=== PATIENT | male | born 1975 | race Caucasian/White ===

== ENCOUNTER 2018-10-14 16:40 | Inpatient (IN) | payer OTHER ==
[2018-10-14 16:47] VITALS: BMI 25.8
--- NOTE | 2018-10-14 16:47 | PDOC ---
Rapid Medical Evaluation Time Seen by Provider: 10/14/18 16:43 Medical Evaluation: Allergies Allergy/AdvReac Type Severity Reaction Status Date / Time No Known Allergies Allergy Verified 05/28/12 09:51 10/14/18 16:43 Pt presents with chest pain for the last 10 days. Hx of past heart attack, on plavix for stents placed in 2011. Admits to associated SOB and L arm pain. Exam: RRR, S1S2 present, no mrg. lungs CTAB Orders: labs, ekg, cxr Pt to proceed to the ER for further evaluation Discharge Disposition - Diagnosis Chest pain Qualifiers: Chest pain type: unspecified Qualified Code(s): R07.9 - Chest pain, unspecified - Referrals - Patient Instructions - Post Discharge Activity
--- NOTE | 2018-10-14 17:37 | PDOC ---
History of Present Illness - General Chief Complaint: Chest Pain Stated Complaint: chest pain Time Seen by Provider: 10/14/18 16:43 Past History - Past Medical History Allergies/Adverse Reactions: Allergies Allergy/AdvReac Type Severity Reaction Status Date / Time No Known Allergies Allergy Verified 05/28/12 09:51 Home Medications: Ambulatory Orders Bisoprolol Fumarate [Zebeta (Nf) -] 5 mg PO DAILY 04/01/12 Clopidogrel Bisulfate [Plavix -] 75 mg PO DAILY 04/01/12 Ramipril 2.5 mg PO DAILY 04/01/12 Rosuvastatin Calcium [Crestor] 10 mg PO DAILY 04/01/12 Aspirin [ASA -] 325 mg PO DAILY #0 tablet 05/29/12 Ibuprofen [Motrin -] 400 mg PO TID #0 tablet 05/29/12 Cardiac Disorders: Yes ([place]) COPD: No HTN: Yes - Surgical History Cardiac Surgery: Yes (cath w/stent) - Immunization History Immunization Up to Date: No - Suicide/Smoking/Psychosocial Hx Smoking Status: Yes Smoking History: Current every day smoker Years of Tobacco Use: 1 Have you smoked in the past 12 months: Yes Number of Cigarettes Smoked Daily: 10 Information on smoking cessation initiated: No 'Breaking Loose' booklet given: 05/28/12 Hx Alcohol Use: No Drug/Substance Use Hx: No Hx Substance Use Treatment: No Cardiac Specific PMH - Complaint Specific PMHX Abdominal Aortic Aneurysm: No Angina: Yes Cardiac Arrhythmia: No Cardiac Stent: Yes GERD: No Pacemaker: No Pulmonary Embolus: No Valvular Heart Disease: No Peripheral Vascular Disease: No *Physical Exam - Vital Signs Last Vital Signs Temp Pulse Resp BP Pulse Ox 98.2 F 63 16 99/50 L 97 10/14/18 16:44 10/14/18 16:44 10/14/18 16:44 10/14/18 16:44 10/14/18 16:44 *DC/Admit/Observation/Transfer Diagnosis at time of Disposition: Chest pain Qualifiers: Chest pain type: unspecified Qualified Code(s): R07.9 - Chest pain, unspecified - Discharge Dispostion Condition at time of disposition: Stable - Referrals Referrals: Isabel Walker [Primary Care Provider] - - Patient Instructions - Post Discharge Activity
[2018-10-14 17:50] LABS: BASO % 0.9 % (0-2.0); EOS % 3.9 % (0-4.5); HEMOGLOBIN 14.5 GM/dL (11.7-16.9); LYMPH % 41.8 % (8-40); MCH 30.9 pg (25.7-33.7); MCHC 34.5 g/dl (32.0-35.9); MEAN CELL VOLUME 89.5 fl (80-96); MEAN PLT VOLUME 8.8 fl (7.5-11.1); MONO % 9.5 % (3.8-10.2); NEUT % 43.9 % (42.8-82.8); PLATELET COUNT 204 K/MM3 (134-434); RBC 4.69 M/mm3 (4.00-5.60); RDW 13.1 % (11.9-15.9); WHITE BLOOD COUNT 4.9 K/mm3 (4.0-10.0)
[2018-10-14 18:01] LABS: INR 1.03 (0.83-1.09); PROTHROMBIN TIME (PATIENT) 12.2 SEC (9.7-13.0)
[2018-10-14 18:21] LABS: ALBUMIN 3.7 g/dl (3.4-5.0); BILIRUBIN,TOTAL 0.2 mg/dL (0.2-1); BLOOD UREA NITROGEN 17.7 mg/dL (7-18); CALCIUM 8.5 mg/dL (8.5-10.1); CREATININE 0.8 mg/dL (0.55-1.3); MAGNESIUM 2.5 mg/dL (1.8-2.4); POTASSIUM 4.2 mmol/L (3.5-5.1)
[2018-10-14 18:45] LABS: PH,URINE 5.5 (5.0-8.0); URINE APPEARANCE CLEAR; URINE BILIRUBIN NEGATIVE (NEGATIVE); URINE COLOR YELLOW; URINE GLUCOSE (UA) NEGATIVE (NEGATIVE); URINE KETONE TRACE (NEGATIVE); URINE LEUK ESTERASE NEGATIVE (NEGATIVE); URINE NITRITE NEGATIVE (NEGATIVE); URINE PROTEIN NEGATIVE (NEGATIVE)
[2018-10-14] MEDS ORDERED: ASPIRIN 81 MG CHEWABLE TABLETS PO ONE (21:50)
[2018-10-14] MEDS ORDERED: ASPIRIN 81 MG CHEWABLE TABLETS ONE (22:06)
--- NOTE | 2018-10-14 22:18 | PDOC ---
Documentation entered by Ángel Russell SCRIBE, acting as scribe for Carmina Ureña MD. Carmina Ureña MD: This documentation has been prepared by the Drew montes Joel, SCRIBE, under my direction and personally reviewed by me in its entirety. I confirm that the documentation accurately reflects all work, treatment, procedures, and medical decision making performed by me. History of Present Illness - General Chief Complaint: Chest Pain Stated Complaint: chest pain Time Seen by Provider: 10/14/18 16:43 History Source: Patient Exam Limitations: No Limitations - History of Present Illness Initial Comments: 10/14/18 17:58 The patient is a 43 year old male with a significant PMH of cardiac stents and hyperlipidemia who presents to the emergency department for evaluation of left side chest pain for the past 10 days. The past describes his chest pain as an intermittent squeezing and stabbing sensation localized on the left side with associated minimal shortness of breath, which is aggravated by standing. The patient reports he normally takes Plavix but does not adhere completely and ran out about 1 month ago. He reports speaking with his PCP and resuming Plavix about 4 days ago after the patient became concerned of his symptoms. 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 He endorses taking all his required medications this morning. The patient denies headache and dizziness. Denies fever, chills, nausea, vomit, diarrhea and constipation. Denies dysuria, frequency, urgency and hematuria. Allergies: NKA FMHx: Maternal [place] at 65 Past surgical history: Cardiac stents. Appendectomy Social history: Current everyday smoker ( pack/day). No reported alcohol or drug use. PCP: Dr. Walker Past History - Past Medical History Allergies/Adverse Reactions: Allergies Allergy/AdvReac Type Severity Reaction Status Date / Time No Known Allergies Allergy Verified 05/28/12 09:51 Home Medications: Ambulatory Orders Bisoprolol Fumarate [Zebeta (Nf) -] 5 mg PO DAILY 04/01/12 Clopidogrel Bisulfate [Plavix -] 75 mg PO DAILY 04/01/12 Rosuvastatin Calcium [Crestor] 10 mg PO DAILY 04/01/12 Aspirin [ASA -] 325 mg PO DAILY #0 tablet 05/29/12 Cardiac Disorders: Yes ([place]) COPD: No HTN: Yes - Surgical History Cardiac Surgery: Yes (cath w/stent) - Immunization History Immunization Up to Date: No - Suicide/Smoking/Psychosocial Hx Smoking Status: Yes Smoking History: Current every day smoker Years of Tobacco Use: 1 Have you smoked in the past 12 months: Yes Number of Cigarettes Smoked Daily: 10 Information on smoking cessation initiated: No 'Breaking Loose' booklet given: 05/28/12 Hx Alcohol Use: No Drug/Substance Use Hx: No Hx Substance Use Treatment: No Review of Systems - Review of Systems Able to Perform ROS?: Yes Comments:: 10/14/18 17:58 GENERAL/CONSTITUTIONAL: No fever or chills. No weakness. HEAD, EYES, EARS, NOSE AND THROAT: No change in vision. No ear pain or discharge. No sore throat. CARDIOVASCULAR: (+) Left side chest pain. (+) Minimal SOB. RESPIRATORY: No cough, wheezing, or hemoptysis. GASTROINTESTINAL: No nausea, vomiting, diarrhea or constipation. GENITOURINARY: No dysuria, frequency, or change in urination. MUSCULOSKELETAL: No joint or muscle swelling or pain. No neck or back pain. SKIN: No rash NEUROLOGIC: No headache, vertigo, loss of consciousness, or change in strength/ sensation. ENDOCRINE: No increased thirst. No abnormal weight change. HEMATOLOGIC/LYMPHATIC: No anemia, easy bleeding, or history of blood clots. ALLERGIC/IMMUNOLOGIC: No hives or skin allergy. *Physical Exam - Vital Signs Last Vital Signs Temp Pulse Resp BP Pulse Ox 98.2 F 63 16 99/50 L 97 10/14/18 16:44 10/14/18 16:44 10/14/18 16:44 10/14/18 16:44 10/14/18 16:44 - Physical Exam Comments: 10/14/18 17:59 GENERAL: Awake, alert, and fully oriented, in no acute distress HEAD: No signs of trauma EYES: PERRLA, EOMI, sclera anicteric, conjunctiva clear ENT: Auricles normal inspection, hearing grossly normal, nares patent, oropharynx clear without exudates. Moist mucosa NECK: Normal ROM, supple, no lymphadenopathy, JVD, or masses LUNGS: Breath sounds equal, clear to auscultation bilaterally. No wheezes, and no crackles HEART: Regular rate and rhythm, normal S1 and S2, no murmurs, rubs or gallops ABDOMEN: Soft, nontender, normoactive bowel sounds. No guarding, no rebound. No masses EXTREMITIES: Normal range of motion, no edema. No clubbing or cyanosis. No cords, erythema, or tenderness NEUROLOGICAL: Cranial nerves II through XII grossly intact. Normal speech, normal gait SKIN: Warm, Dry, normal turgor, no rashes or lesions noted. ED Treatment Course - LABORATORY CBC & Chemistry Diagram: 10/14/18 17:13 10/14/18 17:13 - ADDITIONAL ORDERS Additional order review: Laboratory Results 10/14/18 10/14/18 10/14/18 20:30 18:33 17:35 PT with INR INR Sodium Potassium Chloride Carbon Dioxide Anion Gap BUN Creatinine Est GFR (CKD-EPI)AfAm Est GFR (CKD-EPI)NonAf Random Glucose Calcium Magnesium Total Bilirubin AST ALT Alkaline Phosphatase Creatine Kinase 288 338 H Creatine Kinase Index 1.1 1.1 CK-MB (CK-2) 3.2 3.8 H Troponin I < 0.02 < 0.02 Total Protein Albumin Urine Color Yellow Urine Appearance Clear Urine pH 5.5 Ur Specific [place] 1.021 Urine Protein Negative Urine Glucose (UA) Negative Urine Ketones Trace H Urine Blood Negative Urine Nitrite Negative Urine Bilirubin Negative Urine Urobilinogen 1.0 Ur Leukocyte Esterase Negative 10/14/18 10/14/18 10/14/18 17:13 17:13 17:13 PT with INR 12.20 INR 1.03 Sodium 138 Potassium 4.2 Chloride 107 Carbon Dioxide 24 Anion Gap 7 L BUN 17.7 Creatinine 0.8 Est GFR (CKD-EPI)AfAm 125.04 Est GFR (CKD-EPI)NonAf 107.88 Random Glucose 87 Calcium 8.5 Magnesium Cancelled 2.5 H Total Bilirubin 0.2 AST 32 ALT 68 H Alkaline Phosphatase 123 H Creatine Kinase Creatine Kinase Index CK-MB (CK-2) Troponin I Total Protein 7.0 Albumin 3.7 Urine Color Urine Appearance Urine pH Ur Specific [place] Urine Protein Urine Glucose (UA) Urine Ketones Urine Blood Urine Nitrite Urine Bilirubin Urine Urobilinogen Ur Leukocyte Esterase 10/14/18 17:13 RBC 4.69 MCV 89.5 MCHC 34.5 RDW 13.1 MPV 8.8 D Neutrophils % 43.9 Lymphocytes % 41.8 H D Monocytes % 9.5 Eosinophils % 3.9 Basophils % 0.9 D Medical Decision Making - Medical Decision Making 10/14/18 21:50 43-year-old male presents with chest tightness that he states is been intermittent and squeezing. Past medical history significant for heart attack and cardiac catheterization with stents placed in [facility] in 2011. his PCP is in the [place].He does have an appt with a it systems administrator on Nov 24 but he dev chest pain. No prior ekg for comparison pt takes plavix,baby aspirin,atorvastatin and biosprolol and took all his meds today 10/14/18 22:15 *DC/Admit/Observation/Transfer Diagnosis at time of Disposition: Chest pain Qualifiers: Chest pain type: unspecified Qualified Code(s): R07.9 - Chest pain, unspecified - Discharge Dispostion Condition at time of disposition: Good Decision to Admit order: Yes - Referrals Referrals: Isabel Walker [Primary Care Provider] - - Patient Instructions - Post Discharge Activity
--- NOTE | 2018-10-14 23:08 | PN ---
Teaching Attending Note Name of Resident: Millicent Berry ATTENDING PHYSICIAN STATEMENT I saw and evaluated the patient. I reviewed the resident's note and discussed the case with the resident. I agree with the resident's findings and plan as documented. SUBJECTIVE: Seen and examined; please refer to resident note for further historical information. Briefly, this is a 43 y/o male presenting with CP; he [place] a [place] and we do not have cath report, etc. He is afebrile and hemodynamically stable with troponin x2 (-) and CKMB initially very slightly up that has returned down. He is currently chest pain free. Given his risks for CAD we plan to keep him on the floor on telemetry and repeat 1 more set of enzymes and obtain EKG in AM. We can consider cardiology consultation in AM. His chest pain happens both at rest 10 sys ROS done and negative aside from HPI PMH, PSH, FH, SH reviewed Home Medications Medication Instructions Recorded Bisoprolol Fumarate [Zebeta (Nf) -] 5 mg PO DAILY 04/01/12 Clopidogrel Bisulfate [Plavix -] 75 mg PO DAILY 04/01/12 Rosuvastatin Calcium [Crestor] 10 mg PO DAILY 04/01/12 Aspirin [ASA -] 325 mg PO DAILY #0 tablet 05/29/12 OBJECTIVE: VS, labs, imaging reviewed NAD, AAO, resting comfortably in bed NC AT EOMI PERRLA RRR s1/2 no mgr Lungs CTAB, w/ sym exp NT ND +BS CN2-12 wnl, no fnd Normal mood, appropriate behavior EKG reviewed CXR reviewed ASSESSMENT AND PLAN: Patient with a history of CAD (PCI in [facility]) presents to the ER with a CC of chest pain 1)
--- NOTE | 2018-10-15 00:01 | HP ---
CHIEF COMPLAINT: chest pain PCP: Dr. Walker HISTORY OF PRESENT ILLNESS: Mr. Armstrong is a 43 yo male with history of DC s/p stent placement in 2011, hyperlipidemia, and HTN presents to ED with intermittent chest pain x 2 weeks. He describes the pain as squeezing, pressure, and sharp at times averaging 4-5/ 10 when it presents. It lasts about 1 minute and resolves without any modifications. It can be present at rest and during activity. The pain sometimes radiates to his back and down his left arm. He reports that this pain is different than during his previous DC. He denies headache, dizziness, nausea , vomiting, or LE edema. He recently stopped his Plavix and is unable to give a timeframe. He called his PCP about a week ago and got a refill and resumed that medication. He also has an appointment with a new mail teller in November. ER course was notable for: (1) 162mg ASA administered (2) Troponins negative x 2 (3) EKG PAST MEDICAL HISTORY: 1. DC s/p stent 2011 2. hyperlipidemia 3. HTN PAST SURGICAL HISTORY: appendectomy Social History: Smokin/2 ppd for 28 years, patient is interested in quitting Alcohol: none Drugs: none Family History: mother passed from DC at 65 father healthy siblings healthy Allergies No Known Allergies Allergy (Verified 05/28/12 09:51) HOME MEDICATIONS: Home Medications Medication Instructions Recorded Bisoprolol Fumarate [Zebeta (Nf) -] 5 mg PO DAILY 04/01/12 Clopidogrel Bisulfate [Plavix -] 75 mg PO DAILY 04/01/12 Rosuvastatin Calcium [Crestor] 10 mg PO DAILY 04/01/12 Aspirin [ASA -] 325 mg PO DAILY #0 tablet 05/29/12 REVIEW OF SYSTEMS CONSTITUTIONAL: Absent: fever, chills, diaphoresis, generalized weakness CARDIOVASCULAR: Present: chest pain Absent: syncope, palpitations, irregular heart rate, lightheadedness, peripheral edema RESPIRATORY: Present: shortness of breath Absent: cough, dyspnea with exertion, orthopnea, wheezing, stridor, hemoptysis GASTROINTESTINAL: Absent: abdominal pain, abdominal distension, nausea, vomiting, diarrhea MUSCULOSKELETAL: Present: left leg pain Absent: joint swelling, back pain, neck pain SKIN: Absent: rash, itching, pallor HEMATOLOGIC/IMMUNOLOGIC: Absent: easy bleeding, easy bruising ENDOCRINE: Absent: unexplained weight loss NEUROLOGIC: Absent: headache, focal weakness or paresthesias, dizziness, unsteady gait, seizure, mental status changes, bladder or bowel incontinence PSYCHIATRIC: Absent: anxiety, depression, suicidal or homicidal ideation, hallucinations. PHYSICAL EXAMINATION Vital Signs - 24 hr 10/14/18 16:44 Temperature 98.2 F Pulse Rate 63 Respiratory 16 Rate Blood Pressure 99/50 L O2 Sat by Pulse 97 Oximetry (%) GENERAL: Awake, alert, and fully oriented, in no acute distress. HEAD: Normal with no signs of trauma. EYES: Pupils equal, round and reactive to light, extraocular movements intact, sclera anicteric, conjunctiva clear. No lid lag. EARS, NOSE, THROAT: Ears normal, nares patent. Moist mucous membranes. NECK: Normal range of motion, without JVD, or masses. LUNGS: Breath sounds equal, clear to auscultation bilaterally. No wheezes, and no crackles. No accessory muscle use. HEART: Regular rate and rhythm, normal S1 and S2 without murmur, rub or gallop. ABDOMEN: Soft, nontender, not distended, normoactive bowel sounds, no guarding, no rebound, no masses. MUSCULOSKELETAL: Normal range of motion at all joints. No bony deformities or tenderness. No CVA tenderness. No chest wall tenderness. UPPER EXTREMITIES: 2+ pulses, warm, well-perfused. No cyanosis. No clubbing. No peripheral edema. LOWER EXTREMITIES: 2+ pulses, warm, well-perfused. No calf tenderness. No peripheral edema. NEUROLOGICAL: Cranial nerves II-XII intact. Normal speech. Normal gait. PSYCHIATRIC: Cooperative. Good eye contact. Appropriate mood and affect. SKIN: Warm, dry, normal turgor, no rashes or lesions noted, normal capillary refill. Laboratory Results - last 24 hr 10/14/18 10/14/18 10/14/18 17:13 17:13 17:13 WBC 4.9 RBC 4.69 Hgb 14.5 Hct 42.0 MCV 89.5 MCH 30.9 MCHC 34.5 RDW 13.1 Plt Count 204 D MPV 8.8 D Absolute Neuts (auto) 2.1 Neutrophils % 43.9 Lymphocytes % 41.8 H D Monocytes % 9.5 Eosinophils % 3.9 Basophils % 0.9 D Nucleated RBC % 0 PT with INR 12.20 INR 1.03 Sodium 138 Potassium 4.2 Chloride 107 Carbon Dioxide 24 Anion Gap 7 L BUN 17.7 Creatinine 0.8 Est GFR (CKD-EPI)AfAm 125.04 Est GFR (CKD-EPI)NonAf 107.88 Random Glucose 87 Calcium 8.5 Magnesium 2.5 H Total Bilirubin 0.2 AST 32 ALT 68 H Alkaline Phosphatase 123 H Creatine Kinase Creatine Kinase Index CK-MB (CK-2) Troponin I Total Protein 7.0 Albumin 3.7 Urine Color Urine Appearance Urine pH Ur Specific [place] Urine Protein Urine Glucose (UA) Urine Ketones Urine Blood Urine Nitrite Urine Bilirubin Urine Urobilinogen Ur Leukocyte Esterase 10/14/18 10/14/18 10/14/18 17:13 17:35 18:33 WBC RBC Hgb Hct MCV MCH MCHC RDW Plt Count MPV Absolute Neuts (auto) Neutrophils % Lymphocytes % Monocytes % Eosinophils % Basophils % Nucleated RBC % PT with INR INR Sodium Potassium Chloride Carbon Dioxide Anion Gap BUN Creatinine Est GFR (CKD-EPI)AfAm Est GFR (CKD-EPI)NonAf Random Glucose Calcium Magnesium Cancelled Total Bilirubin AST ALT Alkaline Phosphatase Creatine Kinase 338 H Creatine Kinase Index 1.1 CK-MB (CK-2) 3.8 H Troponin I < 0.02 Total Protein Albumin Urine Color Yellow Urine Appearance Clear Urine pH 5.5 Ur Specific [place] 1.021 Urine Protein Negative Urine Glucose (UA) Negative Urine Ketones Trace H Urine Blood Negative Urine Nitrite Negative Urine Bilirubin Negative Urine Urobilinogen 1.0 Ur Leukocyte Esterase Negative 10/14/18 20:30 WBC RBC Hgb Hct MCV MCH MCHC RDW Plt Count MPV Absolute Neuts (auto) Neutrophils % Lymphocytes % Monocytes % Eosinophils % Basophils % Nucleated RBC % PT with INR INR Sodium Potassium Chloride Carbon Dioxide Anion Gap BUN Creatinine Est GFR (CKD-EPI)AfAm Est GFR (CKD-EPI)NonAf Random Glucose Calcium Magnesium Total Bilirubin AST ALT Alkaline Phosphatase Creatine Kinase 288 Creatine Kinase Index 1.1 CK-MB (CK-2) 3.2 Troponin I < 0.02 Total Protein Albumin Urine Color Urine Appearance Urine pH Ur Specific [place] Urine Protein Urine Glucose (UA) Urine Ketones Urine Blood Urine Nitrite Urine Bilirubin Urine Urobilinogen Ur Leukocyte Esterase EKG HR 65 regular rhythm normal axis T wave inversion V1 and V2 (unchanged from previous EKG) CXR no cardiomegaly or acute processes ASSESSMENT/PLAN: Patient is 43 yo male with history of DC and stent who presents with intermittent chest pain x 2 weeks that is present during activity and rest. 1. unstable angina Patient has been having intermittent chest pain during activity and rest. Trop is <0.02 x 2 and CK-MB is trending down 3.8-->3.2. There are no ST elevations in current EKG. ENRIKE score 2 so no need for PCI right now. Will consult cards because patient does not have established mail teller. Last stress test and echo were in 2012 so will order exercise stress test and echo. Given such early heart disease, patient should be tested for other chronic conditions. TSH, free T4 reflex, and HbA1C ordered. 2. hyperlipidemia No lipid panel on file, will be collected in the morning 3. hypertension Blood pressure is soft, will hold home beta pia and monitor hemodynamics. Will reinstate accordingly. Fluids- Patient is euvolemic and is not in need of fluids at this time. Electrolytes- No abnormalities noted but will continue to monitor. Nutrition- Will start patient on low sodium diet. Visit type - Emergency Visit Emergency Visit: Yes ED Registration Date: 10/14/18 Care time: The patient presented to the Emergency Department on the above date and was hospitalized for further evaluation of their emergent condition. - New Patient This patient is new to me today: Yes Date on this admission: 10/15/18 - Critical Care Critical Care patient: No
[2018-10-15 06:28] LABS: HEMATOCRIT 42.6 % (35.4-49); HEMOGLOBIN 14.4 GM/dL (11.7-16.9); MCH 30.3 pg (25.7-33.7); MCHC 33.7 g/dl (32.0-35.9); MEAN CELL VOLUME 89.7 fl (80-96); MEAN PLT VOLUME 8.9 fl (7.5-11.1); PLATELET COUNT 174 K/MM3 (134-434); RBC 4.75 M/mm3 (4.00-5.60); RDW 12.9 % (11.9-15.9); WHITE BLOOD COUNT 4.3 K/mm3 (4.0-10.0)
[2018-10-15 07:04] LABS: ALBUMIN 3.3 g/dl (3.4-5.0); BILIRUBIN,TOTAL 0.4 mg/dL (0.2-1); CREATININE 0.8 mg/dL (0.55-1.3); MAGNESIUM 2.5 mg/dL (1.8-2.4); PHOSPHOROUS 3.4 mg/dL (2.5-4.9); POTASSIUM 4.3 mmol/L (3.5-5.1); TOT PROT 6.4 g/dl (6.4-8.2)
[2018-10-15] MEDS ORDERED: CLOPIDOGREL BISULFATE 75 MG TABLET (FP) PO SCH (10:00)
[2018-10-15] MEDS ORDERED: ASPIRIN 325 MG TABLET PO SCH (10:00)
[2018-10-15] MEDS ORDERED: ASPIRIN COATED 81 MG TABLET.EC PO SCH (10:00)
[2018-10-15] MEDS ORDERED: CLOPIDOGREL BISULFATE 75 MG TABLET (FP) ONE (10:25)
[2018-10-15] MEDS ORDERED: ASPIRIN COATED 81 MG TABLET.EC ONE (10:25)
--- NOTE | 2018-10-15 11:52 | PN ---
Physical Exam: SUBJECTIVE: Patient seen and examined at bedside. Pt stating that his chest discomfort is resolving. OBJECTIVE: Vital Signs Period Temp Pulse Resp BP Sys/Vanegas Pulse Ox Last 24 Hr 97.6 F-98.2 F 62-68 16-17 99-110/50-80 96-98 GENERAL: The patient is awake, alert, and fully oriented, in no acute distress. HEAD: Normal with no signs of trauma. LUNGS: Breath sounds equal, clear to auscultation bilaterally, no wheezes, no crackles, no accessory muscle use. HEART: Regular rate and rhythm, S1, S2 without murmur, rub or gallop. ABDOMEN: Soft, nontender, nondistended, normoactive bowel sounds, no guarding EXTREMITIES: 2+ pulses, warm, well-perfused, no edema. NEUROLOGICAL: Cranial nerves II through XII grossly intact. Normal speech PSYCH: Normal mood, normal affect. SKIN: Warm, dry, normal turgor, no rashes or lesions noted Laboratory Last Values WBC 4.3 K/mm3 (4.0-10.0) 10/15/18 06:05 RBC 4.75 M/mm3 (4.00-5.60) 10/15/18 06:05 Hgb 14.4 GM/dL (11.7-16.9) 10/15/18 06:05 Hct 42.6 % (35.4-49) 10/15/18 06:05 MCV 89.7 fl (80-96) 10/15/18 06:05 MCH 30.3 pg (25.7-33.7) 10/15/18 06:05 MCHC 33.7 g/dl (32.0-35.9) 10/15/18 06:05 RDW 12.9 % (11.9-15.9) 10/15/18 06:05 Plt Count 174 K/MM3 (134-434) 10/15/18 06:05 MPV 8.9 fl (7.5-11.1) 10/15/18 06:05 Absolute Neuts (auto) 2.1 K/mm3 (1.5-8.0) 10/14/18 17:13 Neutrophils % 43.9 % (42.8-82.8) 10/14/18 17:13 Lymphocytes % 41.8 % (8-40) H D 10/14/18 17:13 Monocytes % 9.5 % (3.8-10.2) 10/14/18 17:13 Eosinophils % 3.9 % (0-4.5) 10/14/18 17:13 Basophils % 0.9 % (0-2.0) D 10/14/18 17:13 Nucleated RBC % 0 % (0-0) 10/14/18 17:13 PT with INR 12.20 SEC (9.7-13.0) 10/14/18 17:13 INR 1.03 (0.83-1.09) 10/14/18 17:13 Sodium 139 mmol/L (136-145) 10/15/18 06:05 Potassium 4.3 mmol/L (3.5-5.1) 10/15/18 06:05 Chloride 108 mmol/L (98-107) H 10/15/18 06:05 Carbon Dioxide 26 mmol/L (21-32) 10/15/18 06:05 Anion Gap 5 MMOL/L (8-16) L 10/15/18 06:05 BUN 16.0 mg/dL (7-18) 10/15/18 06:05 Creatinine 0.8 mg/dL (0.55-1.3) 10/15/18 06:05 Est GFR (CKD-EPI)AfAm 125.04 10/15/18 06:05 Est GFR (CKD-EPI)NonAf 107.88 10/15/18 06:05 Random Glucose 97 mg/dL (74-106) 10/15/18 06:05 Hemoglobin A1c % 5.7 % (4.2-6.3) 10/15/18 06:05 Calcium 8.0 mg/dL (8.5-10.1) L 10/15/18 06:05 Phosphorus 3.4 mg/dL (2.5-4.9) 10/15/18 06:05 Magnesium 2.5 mg/dL (1.8-2.4) H 10/15/18 06:05 Total Bilirubin 0.4 mg/dL (0.2-1) 10/15/18 06:05 AST 39 U/L (15-37) H 10/15/18 06:05 ALT 73 U/L (13-61) H 10/15/18 06:05 Alkaline Phosphatase 119 U/L (45-117) H 10/15/18 06:05 Creatine Kinase 241 U/L (26-308) 10/15/18 02:41 Creatine Kinase Index 0.9 % (0.0-5.0) 10/15/18 02:41 CK-MB (CK-2) 2.4 ng/mL (0.5-3.6) 10/15/18 02:41 Troponin I < 0.02 ng/ml (0.00-0.05) 10/15/18 02:41 Total Protein 6.4 g/dl (6.4-8.2) 10/15/18 06:05 Albumin 3.3 g/dl (3.4-5.0) L 10/15/18 06:05 Triglycerides 55 mg/dL (0-150) 10/15/18 06:05 Cholesterol 130 mg/dL (50-200) 10/15/18 06:05 Total LDL Cholesterol 81 mg/dL (5-100) 10/15/18 06:05 HDL Cholesterol 49 mg/dL (40-60) 10/15/18 06:05 TSH 1.46 uIU/ml (0.358-3.74) 10/15/18 06:05 Free T4 1.03 ng/dl (0.76-1.16) 10/15/18 06:05 Urine Color Yellow 10/14/18 18:33 Urine Appearance Clear 10/14/18 18:33 Urine pH 5.5 (5.0-8.0) 10/14/18 18:33 Ur Specific [place] 1.021 (1.010-1.035) 10/14/18 18:33 Urine Protein Negative (NEGATIVE) 10/14/18 18:33 Urine Glucose (UA) Negative (NEGATIVE) 10/14/18 18:33 Urine Ketones Trace (NEGATIVE) H 10/14/18 18:33 Urine Blood Negative (NEGATIVE) 10/14/18 18:33 Urine Nitrite Negative (NEGATIVE) 10/14/18 18:33 Urine Bilirubin Negative (NEGATIVE) 10/14/18 18:33 Urine Urobilinogen 1.0 mg/dL (0.2-1.0) 10/14/18 18:33 Ur Leukocyte Esterase Negative (NEGATIVE) 10/14/18 18:33 Active Medications Generic Name Dose Route Start Last Admin Trade Name Freq PRN Reason Stop Dose Admin Aspirin 81 mg 10/15/18 10:00 10/15/18 10:26 Ecotrin - PO 81 mg DAILY ALLA Administration Clopidogrel Bisulfate 75 mg 10/15/18 10:00 10/15/18 10:26 Plavix - PO 75 mg DAILY ALLA Administration Rosuvastatin Calcium 10 mg 10/15/18 22:00 Crestor - PO HS ALLA Echocardiogram: There was insufficient TR detected to calculate RV systolic pressure. the Left ventricle is grossly normal in size Trace pulmonic valvular regurgitation. There is apical akinesis. There is apical septal wall akinesis There is apical anterior wall akinesis There is mild to moderate global hypokinesis of the left ventricle Left ventricular systolic fxn is moderately to severely reduced there is mild Mitral regurg The transmitral spectral doppler flow pattern is normal for age. ASSESSMENT/PLAN: Pt is a 43 yo M who presented to the ED with chest pain. Pt has PMH of CAD, prior [place] s/p stent (2011), HLD, HTN. PT also endorses to smoking. His pain began 2 weeks ago. pain was not constant throughout the time. Pt would have pain that wasnt associated with exertion. On 10/14/18 the pain returned and pt decided to come to ED. Chest pain -EKG: no ST elevation, T wave inversion in V1 and V2; Normal sinus rhythm -Troponin neg x3 -Echo results show poor LV systolic fxn -awaiting exercise stress test -c/w Asa and Plavix -cardiology recs appreciated:
--- NOTE | 2018-10-15 13:35 | ECHO ---
Name: MALINI ESTRADA Exam:Adult Echocardiogram Study Date: 10/15/2018 07:32 AM Age: 43 yrs Reason For Study: cardiac history Height: 66 in Weight: 160 lb BSA: 1.8 m2 MMode/2D Measurements & Calculations IVSd: 0.94 cm Ao root diam: 2.9 cm LVIDd: 4.7 cm LA dimension: 3.5 cm LVIDs: 3.4 cm LVPWd: 0.86 cm EDV(Teich): 104.1 ml LVOT diam: 2.0 cm ESV(Teich): 45.9 ml LAV (MOD-bp): 38.5 ml Doppler Measurements & Calculations MV E max tyler: 80.0 cm/sec Ao V2 max: 131.7 cm/sec MV A max tyler: 75.2 cm/sec Ao max P.9 mmHg MV E/A: 1.1 MV dec time: 0.17 sec GIFTY(V,D): 2.4 cm2 LV V1 max P.1 mmHg MR max tyler: 318.1 cm/sec LV V1 max: 100.9 cm/sec MR max P.0 mmHg PA V2 max: 108.6 cm/sec Med Peak E' [place]: 8.1 cm/sec PA max P.7 mmHg Med E/e': 9.9 Lat Peak E' [place]: 11.3 cm/sec Lat E/e': 7.1 PI Vmax: 141.2 cm/sec Procedure A two-dimensional transthoracic echocardiogram with color flow and Doppler was performed. Left Ventricle The left ventricle is grossly normal size. Left ventricular systolic function is moderate to severely reduced. The transmitral spectral Doppler flow pattern is normal for age. There is apical akinesis. There is a pical septal wall akinesis. There is apical anterior wall akinesis. There is mild to moderate global hypoki nesis of the left ventricle. Right Ventricle The right ventricle is normal in size and function. Atria Normal left and right atrial size and function. Mitral Valve There is mild mitral valve thickening. There is no mitral valve stenosis. There is mild mitral regurg itation. Tricuspid Valve There is mild tricuspid valve thickening. There is no tricuspid stenosis. There was insufficient TR d etected to calculate RV systolic pressure. Aortic Valve The aortic valve is normal in structure and function. No hemodynamically significant valvular aortic stenosis. No aortic regurgitation is present. Pulmonic Valve The pulmonic valve is not well visualized. There is no pulmonic valvular stenosis. Trace pulmonic vidhya vular regurgitation. Great Vessels The aortic root is normal size. Pericardium/Pleura There is no pericardial effusion. Interpretation Summary There was insufficient TR detected to calculate RV systolic pressure. The left ventricle is grossly normal size. Trace pulmonic valvular regurgitation. There is apical akinesis. There is apical septal wall akinesis. There is apical anterior wall akinesis. There is mild to moderate global hypokinesis of the left ventricle. Left ventricular systolic function is moderate to severely reduced. There is mild mitral regurgitation. The transmitral spectral Doppler flow pattern is normal for age. MD Simone Fernandez 10/15/2018 01:34 PM
--- NOTE | 2018-10-15 13:41 | CON.CARD ---
Consult Consult Specialty:: Cardiology Referred by:: Dr. Johnson Reason for Consultation:: Chest pain with a history of CAD and DE. - History of Present Illness Chief Complaint: Chest pain History of Present Illness: 43 year-old man, active heavy smoker, with a PMHx of HTN, HLD, CAD, [place] s/p stenting in [facility] in 2011, ischemic cardiomyopathy with LV systolic dysfunction presents to ED 10/15/18 with intermittent chest pain x 2 weeks. The patient has intermittent non-exertional left sided chest pain for 2 weeks. He cannot recall any precipitating factors of his chest pain. But he has exertional dyspnea. Chest pain lasts about 1 minute and resolves without any modifications. It can be present at rest and during activity. He has left sided local tenderness associated with the chest pain. ECG showed no acute changes. DE ruled out. Echocardiogram 10/15/18 showed normal LV size with large apical severe hypokinesis , anteroseptal akinesis and distal inferoapical akinesis. LV systolic function is severely reduced. Estimated LVEF 30-35%. Normal RV. Mild LA dilatation. No significant valvular abnormalities. - History Source History Provided By: Patient, Medical Record - Past Medical History Cardio/Vascular: Yes: CAD, CHF, HTN, Hyperlipdemia - Alcohol/Substance Use Hx Alcohol Use: No - Smoking History Smoking history: Current every day smoker Have you smoked in the past 12 months: Yes Aproximately how many cigarettes per day: 10 Home Medications - Allergies Allergies/Adverse Reactions: Allergies Allergy/AdvReac Type Severity Reaction Status Date / Time No Known Allergies Allergy Verified 10/15/18 10:59 - Home Medications Home Medications: Ambulatory Orders Bisoprolol Fumarate [Zebeta (Nf) -] 5 mg PO DAILY 04/01/12 Clopidogrel Bisulfate [Plavix -] 75 mg PO DAILY 04/01/12 Rosuvastatin Calcium [Crestor] 10 mg PO DAILY 04/01/12 Aspirin [ASA -] 325 mg PO DAILY #0 tablet 05/29/12 Atorvastatin Calcium [Lipitor] 20 mg PO DAILY 10/15/18 Review of Systems - Review of Systems Cardiovascular: reports: Chest Pain Respiratory: reports: SOB on Exertion Vital Signs: Vital Signs Temperature 97.6 F 10/15/18 09:05 Pulse Rate 62 10/15/18 09:05 Respiratory Rate 16 10/15/18 09:05 Blood Pressure 110/69 10/15/18 09:05 O2 Sat by Pulse Oximetry (%) 96 10/15/18 09:05 General: Well developed. Well nourished. No acute distress. Head: Normocephalic. Atraumatic, Eyes: PERRLA, EOMI. Sclerae anicteric. Conjunctivae clear. Neck: Supple. No JVD. No bruits. Heart: Normal S1, S2: Regular rhythm and rate. No murmur. No gallop or rub. Lungs: Symmetrical air entry. Clear to auscultation. No crackles. No wheezing or rhonchi. Abdomen: Soft. Bowel sound positive. Non tender. No masses. Extremities: No edema. No clubbing or cyanosis. PD 2+, equal bilaterally. Neuro: Intact, no focal findings. AAO X3. - Other Data Labs, Other Data: CBC, BMP 10/15/18 06:05 10/15/18 06:05 INR, PTT INR 1.03 (0.83-1.09) 10/14/18 17:13 Troponin, BNP 10/14/18 10/14/18 10/15/18 17:35 20:30 02:41 Troponin I < 0.02 < 0.02 < 0.02 Troponin, BNP 10/14/18 10/14/18 10/15/18 17:35 20:30 02:41 Troponin I < 0.02 < 0.02 < 0.02 Assessment/Plan 43 year-old man, active heavy smoker, with a PMHx of HTN, HLD, CAD, [place] s/p stenting in [facility] in 2011, ischemic cardiomyopathy with LV systolic dysfunction presents to ED 10/15/18 with intermittent atypical chest pain x 2 weeks. ECG showed no acute changes. DE ruled out. Echocardiogram 10/15/18 showed normal LV size with large apical severe hypokinesis , anteroseptal akinesis and distal inferoapical akinesis. LV systolic function is severely reduced. Estimated LVEF 30-35%. Normal RV. Mild LA dilatation. No significant valvular abnormalities. 1. Chest pain with atypical features, likely not acute coronary syndrome. Would discharge the patient from ED with close outpatient cardiac follow up. He will be seen by Dr. Luna in our [place] office on 10/17/18 at 10:30AM. Discharge with aspirin, Bystolic and low dose Diovan 80 mg daily. Increase atorvastatin to 40 mg daily. 2) Chronic systolic CHF with severe LV systolic dysfunction. Continue Bystolic and start low dose Diovan 80 mg daily. Repeat echo in 2-3 months. May need prophylactic ICD if LV systolic function remains poor. Please do not hesitate to call us for reconsult at any time if any further questions or additional issue arises regarding this patient.
[2018-10-15 15:42] VITALS: BP 118/74; PULSE 63; TEMP 97.4
--- NOTE | 2018-10-15 16:21 | DS ---
Physical Exam: SUBJECTIVE: Patient seen and examined at bedside. Pt stated his chest pain and discomfort is resolving. OBJECTIVE: Vital Signs Period Temp Pulse Resp BP Sys/Vanegas Pulse Ox Last 24 Hr 97.4 F-98.2 F 62-68 16-17 99-118/50-80 96-98 PHYSICAL EXAM GENERAL: The patient is awake, alert, and fully oriented, in no acute distress. LUNGS: Breath sounds equal, clear to auscultation bilaterally, no wheezes, no crackles, no accessory muscle use. HEART: Regular rate and rhythm, S1, S2 ABDOMEN: Soft, nontender, nondistended, normoactive bowel sounds, no guarding EXTREMITIES: 2+ pulses, warm, well-perfused, no edema. NEUROLOGICAL: Cranial nerves II through XII grossly intact. Normal speech PSYCH: Normal mood, normal affect. SKIN: Warm, dry, normal turgor, no rashes or lesions noted. Laboratory Last Values WBC 4.3 K/mm3 (4.0-10.0) 10/15/18 06:05 RBC 4.75 M/mm3 (4.00-5.60) 10/15/18 06:05 Hgb 14.4 GM/dL (11.7-16.9) 10/15/18 06:05 Hct 42.6 % (35.4-49) 10/15/18 06:05 MCV 89.7 fl (80-96) 10/15/18 06:05 MCH 30.3 pg (25.7-33.7) 10/15/18 06:05 MCHC 33.7 g/dl (32.0-35.9) 10/15/18 06:05 RDW 12.9 % (11.9-15.9) 10/15/18 06:05 Plt Count 174 K/MM3 (134-434) 10/15/18 06:05 MPV 8.9 fl (7.5-11.1) 10/15/18 06:05 Absolute Neuts (auto) 2.1 K/mm3 (1.5-8.0) 10/14/18 17:13 Neutrophils % 43.9 % (42.8-82.8) 10/14/18 17:13 Lymphocytes % 41.8 % (8-40) H D 10/14/18 17:13 Monocytes % 9.5 % (3.8-10.2) 10/14/18 17:13 Eosinophils % 3.9 % (0-4.5) 10/14/18 17:13 Basophils % 0.9 % (0-2.0) D 10/14/18 17:13 Nucleated RBC % 0 % (0-0) 10/14/18 17:13 PT with INR 12.20 SEC (9.7-13.0) 10/14/18 17:13 INR 1.03 (0.83-1.09) 10/14/18 17:13 Sodium 139 mmol/L (136-145) 10/15/18 06:05 Potassium 4.3 mmol/L (3.5-5.1) 10/15/18 06:05 Chloride 108 mmol/L (98-107) H 10/15/18 06:05 Carbon Dioxide 26 mmol/L (21-32) 10/15/18 06:05 Anion Gap 5 MMOL/L (8-16) L 10/15/18 06:05 BUN 16.0 mg/dL (7-18) 10/15/18 06:05 Creatinine 0.8 mg/dL (0.55-1.3) 10/15/18 06:05 Est GFR (CKD-EPI)AfAm 125.04 10/15/18 06:05 Est GFR (CKD-EPI)NonAf 107.88 10/15/18 06:05 Random Glucose 97 mg/dL (74-106) 10/15/18 06:05 Hemoglobin A1c % 5.7 % (4.2-6.3) 10/15/18 06:05 Calcium 8.0 mg/dL (8.5-10.1) L 10/15/18 06:05 Phosphorus 3.4 mg/dL (2.5-4.9) 10/15/18 06:05 Magnesium 2.5 mg/dL (1.8-2.4) H 10/15/18 06:05 Total Bilirubin 0.4 mg/dL (0.2-1) 10/15/18 06:05 AST 39 U/L (15-37) H 10/15/18 06:05 ALT 73 U/L (13-61) H 10/15/18 06:05 Alkaline Phosphatase 119 U/L (45-117) H 10/15/18 06:05 Creatine Kinase 241 U/L (26-308) 10/15/18 02:41 Creatine Kinase Index 0.9 % (0.0-5.0) 10/15/18 02:41 CK-MB (CK-2) 2.4 ng/mL (0.5-3.6) 10/15/18 02:41 Troponin I < 0.02 ng/ml (0.00-0.05) 10/15/18 02:41 Total Protein 6.4 g/dl (6.4-8.2) 10/15/18 06:05 Albumin 3.3 g/dl (3.4-5.0) L 10/15/18 06:05 Triglycerides 55 mg/dL (0-150) 10/15/18 06:05 Cholesterol 130 mg/dL (50-200) 10/15/18 06:05 Total LDL Cholesterol 81 mg/dL (5-100) 10/15/18 06:05 HDL Cholesterol 49 mg/dL (40-60) 10/15/18 06:05 TSH 1.46 uIU/ml (0.358-3.74) 10/15/18 06:05 Free T4 1.03 ng/dl (0.76-1.16) 10/15/18 06:05 Urine Color Yellow 10/14/18 18:33 Urine Appearance Clear 10/14/18 18:33 Urine pH 5.5 (5.0-8.0) 10/14/18 18:33 Ur Specific [place] 1.021 (1.010-1.035) 10/14/18 18:33 Urine Protein Negative (NEGATIVE) 10/14/18 18:33 Urine Glucose (UA) Negative (NEGATIVE) 10/14/18 18:33 Urine Ketones Trace (NEGATIVE) H 10/14/18 18:33 Urine Blood Negative (NEGATIVE) 10/14/18 18:33 Urine Nitrite Negative (NEGATIVE) 10/14/18 18:33 Urine Bilirubin Negative (NEGATIVE) 10/14/18 18:33 Urine Urobilinogen 1.0 mg/dL (0.2-1.0) 10/14/18 18:33 Ur Leukocyte Esterase Negative (NEGATIVE) 10/14/18 18:33 HOSPITAL COURSE: Date of Admission:10/14/18 Echocardiogram: There was insufficient TR detected to calculate RV systolic pressure. the Left ventricle is grossly normal in size Trace pulmonic valvular regurgitation. There is apical akinesis. There is apical septal wall akinesis There is apical anterior wall akinesis There is mild to moderate global hypokinesis of the left ventricle Left ventricular systolic fxn is moderately to severely reduced there is mild Mitral regurg The transmitral spectral doppler flow pattern is normal for age. ASSESSMENT/PLAN: Pt is a 43 yo M who presented to the ED with chest pain. Pt has PMH of CAD, prior [place] s/p stent (2011), HLD, HTN. PT also endorses to smoking. His pain began 2 weeks ago. pain was not constant throughout the time. Pt would have pain that wasnt associated with exertion. On 10/14/18 the pain returned and pt decided to come to ED. In the ED, EKG showed no ST elevation, T wave inversion in V1 and V2 and normal sinus rhythm. The patient had Troponin negative x3. The pt had an echo showing apical akinesis and also severely reduced LV systolic fxn. The pt is discharged on aspirin, bystolic, diovan, and atorvastatin 80. The pt is counseled on importance of taking medication. pt is scheduled to follow up outpt with Dr. Luna. Date of Discharge: 10/15/18 Minutes to complete discharge: 36 Discharge Summary Reason For Visit: CHEST PAIN Current Active Problems CHF (congestive heart failure) (Acute) Chest pain (Acute) Condition: Stable - Instructions Diet, Activity, Other Instructions: You presented to the hospital with chest pain. Your ultrasound of your heart revealed that your heart is not pumping well. You must follow up closely with the mica inspector, Dr. Luna, once you leave the hospital. Your cardiology appointment is on 10/17/18 at 10:30am at the [facility]. You are also to start taking the medications prescribed to you at discharge. Medication Changes: 1. Start Baby Aspirin 2. Start Bystolic 10mg daily 3. Start Diovan 80mg daily 4. Your Atorvastatin is increased to 40 mg daily 5. Stop Plavix Follow up with the following physicians: 1. You must follow up with the mica inspector, Dr. Luna on 10/17/18 at 10:30 am. 2. PCP (Dr. Walker) in one week, please call to schedule follow up to further manage your heart disease and high blood pressure. Diet: 1. Continue to maintain a low cholesterol/ low salt diet Continue all your other medications as prescribed Please return to the ER if you have any signs or symptoms of chest pain, shortness of breath, uncontrollable fever, chills, nausea, vomiting, numbness, tingling, or weakness in any part of your body, changes in vision, or slurred speech. Please return to the ER if symptoms persist, worsen, or new symptoms arise. Referrals: Jus Luna MD [Staff Physician] - 10/17/18 10:30 am Disposition: HOME - Home Medications Comprehensive Discharge Medication List: Ambulatory Orders Aspirin [ASA -] 81 mg PO DAILY #30 tab.chew 10/15/18 Atorvastatin Ca [Lipitor] 40 mg PO HS #30 tablet 10/15/18 Nebivolol HCl [Bystolic] 10 mg NR DAILY #30 tablet 10/15/18 Valsartan [Diovan] 80 mg PO DAILY #30 tablet 10/15/18 This patient is new to me today: No Emergency Visit: No Critical Care patient: No - Discharge Referral Referred to [facility] No
--- NOTE | 2018-10-15 18:29 | PN ---
Teaching Attending Note Name of Resident: Jacqui Meneses ATTENDING PHYSICIAN STATEMENT I saw and evaluated the patient. I reviewed the resident's note and discussed the case with the resident. I agree with the resident's findings and plan as documented. SUBJECTIVE: No further chest discomfort. No palpitations. No associated SOB/ diaphoresis/lightheadedness. OBJECTIVE: Afebrile, Hemodynamically Stable. Last Vital Signs Temp Pulse Resp BP Pulse Ox 97.4 F L 63 16 118/74 96 10/15/18 13:00 10/15/18 13:00 10/15/18 09:05 10/15/18 13:00 10/15/18 13:00 HEENT - Atraumatic, Normocephalic. Heart - S1, S2, RRR Lungs - clear to auscultation Abdomen - soft, non-tender. Bowel Sounds normal. Extremities - no edema, no calf tenderness. Laboratory Results - last 24 hr 10/14/18 10/14/18 10/14/18 17:35 18:33 20:30 WBC RBC Hgb Hct MCV MCH MCHC RDW Plt Count MPV Sodium Potassium Chloride Carbon Dioxide Anion Gap BUN Creatinine Est GFR (CKD-EPI)AfAm Est GFR (CKD-EPI)NonAf Random Glucose Hemoglobin A1c % Calcium Phosphorus Magnesium Total Bilirubin AST ALT Alkaline Phosphatase Creatine Kinase 288 Creatine Kinase Index 1.1 1.1 CK-MB (CK-2) 3.8 H 3.2 Troponin I < 0.02 Total Protein Albumin Triglycerides Cholesterol Total LDL Cholesterol HDL Cholesterol TSH Free T4 Urine Color Yellow Urine Appearance Clear Urine pH 5.5 Ur Specific [place] 1.021 Urine Protein Negative Urine Glucose (UA) Negative Urine Ketones Trace H Urine Blood Negative Urine Nitrite Negative Urine Bilirubin Negative Urine Urobilinogen 1.0 Ur Leukocyte Esterase Negative 10/15/18 10/15/18 10/15/18 02:41 06:05 06:05 WBC 4.3 RBC 4.75 Hgb 14.4 Hct 42.6 MCV 89.7 MCH 30.3 MCHC 33.7 RDW 12.9 Plt Count 174 MPV 8.9 Sodium 139 Potassium 4.3 Chloride 108 H Carbon Dioxide 26 Anion Gap 5 L BUN 16.0 Creatinine 0.8 Est GFR (CKD-EPI)AfAm 125.04 Est GFR (CKD-EPI)NonAf 107.88 Random Glucose 97 Hemoglobin A1c % Calcium 8.0 L Phosphorus 3.4 Magnesium 2.5 H Total Bilirubin 0.4 AST 39 H ALT 73 H Alkaline Phosphatase 119 H Creatine Kinase 241 Creatine Kinase Index 0.9 CK-MB (CK-2) 2.4 Troponin I < 0.02 Total Protein 6.4 Albumin 3.3 L Triglycerides 55 Cholesterol 130 Total LDL Cholesterol 81 HDL Cholesterol 49 TSH 1.46 Free T4 Urine Color Urine Appearance Urine pH Ur Specific [place] Urine Protein Urine Glucose (UA) Urine Ketones Urine Blood Urine Nitrite Urine Bilirubin Urine Urobilinogen Ur Leukocyte Esterase 10/15/18 10/15/18 06:05 06:05 WBC RBC Hgb Hct MCV MCH MCHC RDW Plt Count MPV Sodium Potassium Chloride Carbon Dioxide Anion Gap BUN Creatinine Est GFR (CKD-EPI)AfAm Est GFR (CKD-EPI)NonAf Random Glucose Hemoglobin A1c % 5.7 Calcium Phosphorus Magnesium Total Bilirubin AST ALT Alkaline Phosphatase Creatine Kinase Creatine Kinase Index CK-MB (CK-2) Troponin I Total Protein Albumin Triglycerides Cholesterol Total LDL Cholesterol HDL Cholesterol TSH Free T4 1.03 Urine Color Urine Appearance Urine pH Ur Specific [place] Urine Protein Urine Glucose (UA) Urine Ketones Urine Blood Urine Nitrite Urine Bilirubin Urine Urobilinogen Ur Leukocyte Esterase Discharge Medications Medication Instructions Recorded Aspirin [ASA -] 81 mg PO DAILY #30 tab.chew 10/15/18 Atorvastatin Ca [Lipitor] 40 mg PO HS #30 tablet 10/15/18 Nebivolol HCl [Bystolic] 10 mg NR DAILY #3 tablet 10/15/18 Nebivolol HCl [Bystolic] 10 mg NR DAILY #30 tablet 10/15/18 Valsartan [Diovan] 80 mg PO DAILY #30 tablet 10/15/18 ASSESSMENT AND PLAN: 43 year old male with history of CAD s/p LA s/p PCI/Stent 2011 ([facility]), HTN, HLD , presents with intermittent L sided chest tightness, without associated SOB/ diaphoresis/lightheadedness/palpitations. ECG - NSR, rate 65, no acute changes CXR - no acute cardiopulmonary processes 1. Atypical Chest Pain in setting of CAD history s/p LA s/p PCI/Stent ECG - no acute changes TropI neg x 2 Initially ordered for Echo and Stress. After Echo result, Cardiology cancelled stress in favor of optimization of medical regimen with out-patient Cardiology follow up. Appt with Dr. Luna at [facility] on 10/17/18 at 10:30AM. 2. Newly diagnosed Systolic CHF with severely reduced LV function ?ischemic etiology - no evidence of decompensation or fluid overload. Echocardiogram 10/15/18 showed normal LV size with large apical severe hypokinesis , anteroseptal akinesis and distal inferoapical akinesis. LV systolic function is severely reduced. Estimated LVEF 30-35%. Normal RV. Mild LA dilatation. No significant valvular abnormalities. Evaluated by Cardiology and started on the following regimen - Aspirin, Bystolic , Diovan. Atorvastatin dose increased to 40mg daily. Repeat Echo in 2-3 months and Cardio out-patient follow up. 3. HLD - Continue Atorvastatin (dose increased). 4. HTN - For discharge on Bystolic and Diovan. 5. Elevated Transaminases - etiology unclear. Denies alcohol use. On Statin. Given increase in statin dose, recommend repeat LFTs in 2-3 weeks and further work-up including imaging at that time if transaminases are still elevated. Medically optimized with recommendations of Cardiology with appropriate Cardiology follow up.
[2018-10-15] MEDS ORDERED: ROSUVASTATIN CA 10 MG TABLET (FP) PO SCH (22:00)
--- NOTE | 2018-10-16 10:22 | EKG ---
Test Reason : Blood Pressure : / mmHG Vent. 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
== END 2018-10-15 16:45 | disposition home or self-care (01) | DRG 194 ==
LOC: JER 16:40 → JERBED 23:10
PROVIDERS: ADMIT Internal Medicine
DX: I11.0 Hypertensive heart disease with heart failure (principal); I50.22 Chronic systolic (congestive) heart failure; I36.1 Nonrheumatic tricuspid (valve) insufficiency; I25.5 Ischemic cardiomyopathy; I25.2 Old myocardial infarction; I25.10 Atherosclerotic heart disease of native coronary artery without angina pectoris; Z95.5 Presence of coronary angioplasty implant and graft; E78.5 Hyperlipidemia, unspecified; F17.210 Nicotine dependence, cigarettes, uncomplicated; R74.0 Nonspecific elevation of levels of transaminase and lactic acid dehydrogenase [LDH]; R63.4 Abnormal weight loss; Z68.25 Body mass index [BMI] 25.0-25.9, adult
CPT/HCPCS: 36415; 71046-TC-FY; 80053; 80061; 81003; 82550; 82553; 83036; 83721; 83735; 84100; 84439; 84443; 84484; 85025; 85027; 85610; 93005; 93010; 93306-TC; 99285-25